=== PATIENT | male | born 1965 | race Two or more races ===

== ENCOUNTER 2018-05-02 09:04 | Emergency (ER) | payer OTHER ==
[~2018-05-02] VITALS: Ht 177.8 cm; Wt 108.9 kg
== END 2018-05-02 12:19 | disposition home or self-care (01) ==
LOC: ER 09:04
DX: S67.192A Crushing injury of right middle finger, initial encounter (principal); S62.632A Displaced fracture of distal phalanx of right middle finger, initial encounter for closed fracture; W22.8XXA Striking against or struck by other objects, initial encounter; Y93.89 Activity, other specified; Y92.69 Other specified industrial and construction area as the place of occurrence of the external cause; Y99.8 Other external cause status